=== PATIENT | male | born 1970 | race Caucasian/White ===

== ENCOUNTER 2017-02-13 11:05 | Inpatient (IN) | payer MEDICAID, OTHER ==
[~2017-02-13] VITALS: Ht 172.7 cm; Wt 81.8 kg
[2017-02-13 11:12] VITALS: BP 149/105; PULSE 88; RESP 18; O2SAT 97
--- NOTE | 2017-02-13 11:25 | ED.REPORT ---
HPI-Psychiatric Illness Date of Service February 13, 2017 ED Provider: Tarik Smith MD Patient is a 46 year old male with a history of bipolar disorder and schizophrenia who presents to the ED due to homicidal ideations for the past few years. The patient reports that he does not feel safe and has been questioning his ability to restrain himself if he became "threatened" and might hurt someone but has no plan. He states that he has been analyzing what people say to him and would like to figure out a way to deal with this without hurting anyone. Associated symptoms include anxiety and stress. He denies suicidal ideations at this time but reports he has had suicidal thoughts in the past. The patient states that he is not currently taking any medications and has not spoke with a psychiatrist before. Nursing Notes Stated Complaint: MENTAL HEALTH Chief Complaint: Psychiatric Complaint Nursing Notes Reviewed: Yes Allergies: Coded Allergies: No Known Allergies (Unverified , 02/13/17) General Time Seen by MD: 11:19 Chief Complaint Homicidal ideation Hx Obtained From: Patient Arrived By: Walk-in Onset Occurred: More than a week ago... (>6 months) Associated with: Reports: Anxiety Similar Sx Previous: Yes Risk-Psychiatric Illness Suicide Risk Stratification RF Statements: Risk factors reviewed Past Medical History Past Medical History bipolar disorder schizophrenia Smoking History Unknown if Ever Smoker Social History Alcohol Use: "Social" Drug Use: Denies drug use Other Social History: Good social support Ambulatory Status Independent Review of Systems Respiratory: Denies: Non-productive cough, Shortness of breath Psychiatric: Reports: Anxiety, Homicidal ideation, Stress, Denies: Suicidal ideation Complete sys rev & neg: except as marked. Physical Exam Initial Vital Signs Vital Signs (First) Date Time Temp Pulse Resp B/P Pulse Ox O2 Delivery O2 Flow Rate FiO2 02/13/17 11:12 36.8 88 18 149/105 97 Room Air Initial VS: Reviewed General/Constitutional: Awake, Alert Neurologic: Oriented X3, Speech NL, No motor deficits, No sensory deficits Abnormal Mood/Affect: Positive: Anxious Abnormal Thinking / Perception: Positive: Homicidal, no plan, Suicidal, no plan Head / Eyes: Atraumatic, Normocephalic, PERRL, EOMI Respiratory / Chest: Atraumatic, No respiratory distress Skin: Atraumatic, Color NL, No rash, Warm, Dry Interpretation & Diagnostics Lab Results Interpretation Result Diagram: 02/13/17 1620 02/13/17 1620 Test 02/13/17 11:23 02/13/17 16:20 Hold Urine Received (Received) White Blood Count 7.5th/mm3 (3.8-10.1) Red Blood Count 4.20mil/mm3 (4.40-5.80) Hemoglobin 13.8g/dL (13.8-17.2) Hematocrit 40.7% (41.0-50.0) Mean Corpuscular Volume 96.9fL (81-100) Mean Corpuscular Hemoglobin 32.9pg (27.0-35.0) Mean Corpuscular Hemoglobin Concent 33.9% (32.0-37.0) Red Cell Distribution Width 13.8% (12.3-15.4) Platelet Count 227bil/L (150-400) Neutrophils (%) (Auto) 63.3% (40-74) Lymphocytes (%) (Auto) 22.7% (14-46) Monocytes (%) (Auto) 11.9% (4-12) Eosinophils (%) (Auto) 1.3% (0-5) Basophils (%) (Auto) 0.5% (0-3) Sodium Level 137mEq/L (134-144) Potassium Level 4.1mEq/L (3.5-5.2) Chloride Level 97mEq/L (97-108) Carbon Dioxide Level 23mmol/L (18-29) Blood Urea Nitrogen 19mg/dL (6-24) Creatinine 0.82mg/dL (0.76-1.27) Estimat Glomerular Filtration Rate 108mL/min (>59) Glucose Level 150mg/dL (60-99) Calcium Level 9.4mg/dL (8.5-10.1) Total Bilirubin 0.5mg/dL (0.0-1.2) Aspartate Amino Transf (AST/SGOT) 216U/L (0-50) Alanine Aminotransferase (ALT/SGPT) 63U/L (0-44) Alkaline Phosphatase 69U/L (25-150) Total Protein 7.0g/dL (6.4-8.4) Albumin 3.9g/dL (3.4-5.0) Thyroid Stimulating Hormone (TSH) 2.130uIU/mL (0.450-4.500) Hold Scales Top Tube Received (Received) Re-Eval/Medical Decision Med Decision/Clinical Course 46-year-old male history of schizophrenia, bipolar presenting with thoughts of hurting others. He is worried that he will hurt others. He is not on any medications and Xanax. He reports medications do not work for him. Denies SI. anode worker consulted and recommended admission. Patient admitted to hospital psychiatry araujo. Re-Evaluation/Progress : Time of Eval: 15:35 Re-Evaluation/Progress Note: Discussed patient's case with social media marketer and plan to get patient admitted. Counseled Regarding: Diagnosis, Lab results, Need for admission Discharge & Departure Impression: Primary Impression: Schizophrenia Schizophrenia type: unspecified Qualified Code: F20.9 - Schizophrenia, unspecified Additional Impression: Acute situational disturbance Disposition: ADMITTED TO HOSPITAL Discharge Condition All VS Reviewed: Yes Condition: Stable Scribe Attestation Portions of this note were transcribed by Angie Blanco. I, Dr. Rosemarie Amezquita personally performed the history, physical exam and medical decision-making; I reviewed and confirmed the accuracy of the information in the transcribed note. Signed by: Kris Warner, 02/13/17 and Tarik Mayorga MD February 13, 2017 11:25 Isa Blanco February 13, 2017 12:13
[2017-02-13] MEDS ORDERED: LORazepam 1 mg Tablet PO ONE (12:20)
[2017-02-13 16:32] LABS: BASOPHILS % (AUTO) 0.5 % (0-3); EOSINOPHILS % (AUTO) 1.3 % (0-5); MONOCYTES % (AUTO) 11.9 % (4-12); Mean Corpuscular Hemoglobin 32.9 pg (27.0-35.0); Mean Corpuscular Volume 96.9 fL (81-100); NEUTROPHILS % (AUTO) 63.3 % (40-74); Platelet Count 227 bil/L (150-400)
[2017-02-13] MEDS ORDERED: Alum-Mag Hydrox-Simeth 30 mL Suspension PO PRN ×2 (18:05→20:30)
[2017-02-13] MEDS ORDERED: Benzocaine-Menthol Lozenge 2/Pkg MT PRN (18:05)
[2017-02-13] MEDS ORDERED: Magnesium Hydroxide 10 mL Oral Concentration PO PRN ×2 (18:05→20:30)
[2017-02-13 19:05] VITALS: BP 141/90; PULSE 74; O2SAT 99
[2017-02-13 19:52] VITALS: BP 141/90; PULSE 74; RESP 18; O2SAT 99
[2017-02-13] MEDS ORDERED: Benzocaine-Menthol Lozenge 2/Pkg PO PRN (20:30)
--- NOTE | 2017-02-13 22:26 | NUR ---
Nursing Admit Pt arrival from our ED at 2049 as a voluntary patient with approval for three days from Alba Karimi at [facility]. Pt arrived via wheelchair with hospital staff and security and ambulated to multi purpose room where is was able to complete all paper work and participate with admission process. Pt rated anxiety 8/10, depression 3/10 and denies A/V hallucinations or homicidal or suicidal ideation. Reports history of mother attempting suicide as teenager, and multiple family members being treated for anxiety and depression. Pt reports change in perception of world around him beginning prior to his first divorce in 2014. Pt reports interactions with people around him feel "threatening and relentless" in my interpretation.
--- NOTE | 2017-02-14 04:28 | NUR ---
nursing, nights, 11-7 s/o- has appeared to sleep after 2214 during q 15 minute assessments. a- no apparent distress. p- monitor behavior/emotional state, quality, times and amount of sleep, use and effect of medication. iris
[2017-02-14 08:45] VITALS: BP 117/73; PULSE 16; RESP 16
[2017-02-14] MEDS: LORazepam 1 mg Tablet PO PRN (12:19)
--- NOTE | 2017-02-14 13:49 | PCM.HPPSYC ---
Mental Health HPI Date of Service February 14, 2017 Admission Date/Time February 13, 2017 at 19:55 Reason for Admission Suicidal ideation, paranoia Admission Status: Voluntary Source of Information: Patient Interview, Chart Review Chief Complaint suicidal ideation with paranoia History of Present Illness Patient is a 46-year-old male living with his mother and aunt at his aunts house in [facility]. He moved back to [place] from [place] about 2 months ago. Patient presents today with suicidal ideation (shooting himself in the head with a gun that he does not currently posess) and psychotic symptoms. He had previously described that he feels on stage at all times and that he has a microphone recording and broadcasting things that he says. These symptoms have been going on for greater than one year and have been worsening over the last 3 months. He was mildly agitated with my questioning stating that I am asking all the same questions that have been previously asked but continues to talk. He was pleasant but irritable. He explained to me that he feels like he is covered with video and audio equipment. He had been for 20 years and . Since that time he had another marriage which was similar to his first. He feels like people around him are digging to find answers they will never find. He uses the analogy related to his recent symptoms that he is driving a car with no breaks. Renaldo cruz feels like others are trying to drive the car as well but there are no breaks and he has no control. I met with the patient for 30 minutes, reviewed course from records kept by [facility] emergency department and mental health examiner, I also discussed the case with staff. The patients main issues are paranoia and psychosis. This condition is chronic and has been developing over the last several years. At present it is of moderate intensity. He is manifesting symptoms of suicidal ideation, decreased sleep, and anxiety. Worsening his situation at the time as his transient living situation, difficulty sleeping, and poor habits including drinking alcohol daily. He presents with labiality and difficulty coping due to a combination of emotional imbalance and acute stress. Presenting Symptoms: Psychosis (Months), Anxiety (Months) Vegetative Functioning: Sleep (Decreased), Appetite (Normal), Energy (Decreased ) Allergies Coded Allergies: No Known Allergies (Unverified , 02/13/17) Psychiatric Treatment History Since teenage years, patient has been hospitalized at [facility] in [place] , and [facility] in [place] previously. Fam Hx Mental Health Disorder: Depression (mom, aunt, brother) Past Suicide Attempts Yes (Xanax overdose, in tree with rope around neck) Relevant History Relevant Details: Age of First Attempt: Number of Attempts: Date of Last Attempt: Hx non-suicidal Self-Injury Relevant History Relevant History Details: Past Medical History Past Medical/Surgical History Current and Past Current/Past: Schizophrenia, Bipolar disorder, ADD Problem with Elimination: No Sexually Active: No Currently ?: No Hx Surgeries: No Hx Anesthesia Reactions: No Past Surgical History: None Family History: Cancer (Mother with skin cancer) Fam Hx Mental Health Disorder: Depression Past Social History Family: Living Arrangement: Other (transient, c) Alcohol: Heavy (about 6 12oz beers every 24 hours, day drinking) Hx Substance Use: Yes Substance Use Type: Alcohol, Marijuana (within the last 6 months), Methamphetamine (within the last 6 months) Frequency of Substance Use: historically tried "everything" He has only used alc in last 2 weeks Smoking Status: Former Smoker Review of Systems Constitutional: No: Chills, Fever, Weakness Eyes: Denies: Eyelid Inflammation, Pain, Redness ENT: Denies: Nasal Congestion, Throat Pain Cardiovascular: Denies: Chest Pain, Palpitations Respiratory: Denies: Cough, Hemoptysis Gastrointestinal: Denies: Change in Appetite, Constipation, Diarrhea, Nausea, Vomiting Genitourinary: Denies: Dysuria Musculoskeletal: Reports: Back Pain, Denies: Limitation of Function, Swelling Skin: Denies: Bruising, Dry or Flakiness, Rash, Ulcers Neurological: Denies: Change in Speech, Dizziness, Weakness Psychologic: Reports: Agitation, Insomnia, Nervousness Mental Status Exam Vital Signs Vital Signs Date Time Temp Pulse Resp B/P Pulse Ox O2 Delivery O2 Flow Rate FiO2 02/14/17 08:45 36.7 16 16 117/73 Appearance: Unkept (hospital clothes) Attitude: Cooperative, Other (irritated) Behavior: Overtly anxious Affect: Restricted Mood: Irritable Thought Process/Associations: Logical/Sequential Speech Production: Normal Speech Rate: Pressured Speech Articulation: Normal Thought Content: Suspicious Danger to Self/Suicidal Ideati: Passive Danger to Others: None Delusions: Thought Broadcasting (Endorses), Paranoid (Endorses) Hallucinations: Auditory (Denies), Visual (Denies) Consciousness: Alert Orientation: Person, Place, Date, Situation Memory: Grossly Intact Estimate Intellectual Function: Average Basis for IQ estimate: Awareness current events, Word use/vocabulary Attention/Concentration & Cogn: Intact Cognitive Testing Method: Abstract Reasoning during interview, Proverb interpretation, Spelling forward & backward Insight: Limited Judgement: Limited Result Diagram: 02/13/17 1620 02/13/17 1620 Mental Health Plan Patient is a 46-year-old male with previous diagnoses of bipolar disorder, schizophrenia, and ADD presents with psychosis and paranoia. He has had previous hospitalizations both at [facility] and [facility] in [place]. He feels observed and that his life is so much out of his control that he had thoughts of wanting to kill himself. He has 2 previous attempts one with taking 19 Xanax, and another involving sitting in a tree with a rope around his neck. Both of these times he felt as if there was a way out of the attempt. He states that if he were to kill himself now he would obtain a gun which would be easy for him to do, and shoot himself in the head. His thought process is coherent, he is preoccupied with being monitored. He has delusions of paranoia. He has normal cognitive function. He has not been taking any antipsychotic medications recently, he has in the past used Zyprexa and Ativan associated with psychiatric hospital stays. He feels that stimulant medications such as Adderall are very helpful to him and that he is able to focus on what is in front of him and not be as bothered by what is going on around him. [place] AXIS I: Bipolar Disorder, Schizophrenia, paranoid AXIS II: Differed AXIS III: Chronic back pain AXIS IV: Transient housing AXIS V: GAF 35 Medications Advil 400mg PO Q6H PRN for pain Treatments Patient is being provided with a high degree of safety through the structure and active adult engagement. We will focus on developing improved coping skills and identifying stressors that may have led to current episode. We will attempt to: Integrate into therapeutic groups, milieu and individual therapy. Maintain in a closely monitored and structured unit Provide low-stimulation environment Obtain collateral data to assist in treatment planning Assess degree of lability of affect and impulse control Complete safety plan Decrease frequency of relapse and need for re-hospitalization Denies thoughts of harm to self and/or others Establish a consistent sleep pattern Medication effective in stabilization of mood and/or thought process Tolerates medication without side effects Patient will be on the following psychiatric medications: Zyprexa 10 mg PO BID Clonazepam 1 mg PO HS Address patient's legal status Patient is here voluntarily. Disposition: Likely family's home, estimated length of stay will be 5-14 days Tsering Padgett DO February 14, 2017 13:49
--- NOTE | 2017-02-14 17:11 | NUR ---
DAYS 7-7 S/O-Patient has spent most of shift in room, has been out for group and meals. Patient denies SI and rated depression 3/10. Requesting anxiety medication in afternoon. A- Ativan given with good effect patient resting quietly in room. Denies any needs, made aware of liver labs, AST 216, ALT 63. VSS P- ETOH assessment
--- NOTE | 2017-02-14 22:40 | NUR ---
nursing note evenings S)"The right hand never know what the left hand is doing" O) pt inquiring about his need for ADD medication, "I asked the Dr for Adderall" spent most of evening in dining room with selected peers, cooperative took medication, ate meals A)irritable has abrupt manner, cooperative P) monitor medication effectiveness and encourage participation in treatment
--- NOTE | 2017-02-15 04:23 | NUR ---
nursing, nights, 11-7 s/o- has appeared to sleep after 0 during q 15 minute assessments. a- no apparent distress. p- monitor behavior/emotional state, quality, times and amount of sleep, use and effect of medication. iris
[2017-02-15 10:26] VITALS: BP 118/85; PULSE 107; RESP 16
[2017-02-15] MEDS: LORazepam 1 mg Tablet PO PRN ×2 (11:04→16:25)
--- NOTE | 2017-02-15 11:23 | PCM.PNPSY ---
Subjective Date of Service February 15, 2017 Subjective I spent 30 minutes both reviewing his treatment plan and providing supportive and educational psychotherapy. I spent more than 50% of the time counseling the patient. I reviewed the treatment plan with the patient and discussed options available including the potential risks, benefits and side effects. Singh reports a decrease in intensity of his symptoms. He feels that the medications and sleep helped him significantly. The Staff reports that he has been active and is participating well in one-to-one unit and group activities. He slept 6 hours. He denies medication side effects. Patient was able to identify his medications and what they were used to treat. He appeared to understand the need for medications by the questions he asked during our discussion. Current Medications Current Medications Clonazepam 1 mg HS PO Last administered on 02/14/17 20:13; Admin Dose 1 MG; Start 02/13/17 at 21:00 Ibuprofen 400 mg Q6H PRN PO Last administered on 02/15/17 11:04; Admin Dose 400 MG; Start 02/14/17 at 14:25 Lorazepam 1 mg ONCE ONCE PO Last administered on 02/13/17 12:55; Admin Dose 1 MG; Start 02/13/17 at 12:20; Stop 02/13/17 at 12:21; Status DC Lorazepam 1 mg Q4H PRN PO Last administered on 02/15/17 11:04; Admin Dose 1 MG ; Start 02/13/17 at 20:30 Olanzapine 10 mg BID PO Last administered on 02/15/17 08:22; Admin Dose 10 MG; Start 02/14/17 at 20:30 Olanzapine 10 mg HS PO Last administered on 02/13/17 21:41; Admin Dose 10 MG; Start 02/13/17 at 21:00; Stop 02/14/17 at 16:49; Status DC Trazodone HCl 50 mg HS PRN PO Last administered on 02/13/17 21:41; Admin Dose 50 MG; Start 02/13/17 at 18:05 Mental Status Exam Vital Signs Vital Signs Date Time Temp Pulse Resp B/P Pulse Ox O2 Delivery O2 Flow Rate FiO2 02/15/17 10:26 36.3 107 16 118/85 Appearance: Unkept (hospital clothes) Attitude: Cooperative, Other (irritated) Behavior: Overtly anxious Affect: Restricted Mood: Irritable Thought Process/Associations: Logical/Sequential Speech Production: Normal Speech Rate: Pressured Speech Articulation: Normal Thought Content: Suspicious Danger to Self/Suicidal Ideati: Passive Danger to Others: None Delusions: Thought Broadcasting (Endorses), Paranoid (Endorses) Consciousness: Alert Orientation: Person, Place, Date, Situation Memory: Grossly Intact Estimate Intellectual Function: Average Basis for IQ estimate: Awareness current events, Word use/vocabulary Attention/Concentration & Cogn: Intact Cognitive Testing Method: Abstract Reasoning during interview, Proverb interpretation, Spelling forward & backward Insight: Limited Judgement: Limited Result Diagram: 02/13/17 1620 02/13/17 1620 Mental Health Plan Patient is a 46-year-old male with previous diagnoses of bipolar disorder, schizophrenia, and ADD presents with psychosis and paranoia. He has had previous hospitalizations both at [facility] and [facility] in [place]. He feels observed and that his life is so much out of his control that he had thoughts of wanting to kill himself. He has 2 previous attempts one with taking 19 Xanax, and another involving sitting in a tree with a rope around his neck. Both of these times he felt as if there was a way out of the attempt. He states that if he were to kill himself now he would obtain a gun which would be easy for him to do, and shoot himself in the head. His thought process is coherent, he is preoccupied with being monitored. He has delusions of paranoia. He has normal cognitive function. He has not been taking any antipsychotic medications recently, he has in the past used Zyprexa and Ativan associated with psychiatric hospital stays. He feels that stimulant medications such as Adderall are very helpful to him and that he is able to focus on what is in front of him and not be as bothered by what is going on around him. I believe the addition of Adderall would not be therapeutic. Today after medications are denied asleep he Reports in a near complete remission of psychotic symptoms. [place] AXIS I: Bipolar Disorder, Schizophrenia, paranoid AXIS II: Differed AXIS III: Chronic back pain AXIS IV: Transient housing AXIS V: GAF 35 Medications Treatments Patient is being provided with a high degree of safety through the structure and active adult engagement. We will focus on developing improved coping skills and identifying stressors that may have led to current episode. We will attempt to: Integrate into therapeutic groups, milieu and individual therapy. Maintain in a closely monitored and structured unit Provide low-stimulation environment Obtain collateral data to assist in treatment planning Assess degree of lability of affect and impulse control Complete safety plan Decrease frequency of relapse and need for re-hospitalization Denies thoughts of harm to self and/or others Establish a consistent sleep pattern Medication effective in stabilization of mood and/or thought process Tolerates medication without side effects Patient will be on the following psychiatric medications: Zyprexa 10 mg PO BID Clonazepam 1 mg PO HS Address patient's legal status Patient is here voluntarily. Disposition: Likely family's home, estimated length of stay will be 5-14 days Anthony Mitchell MD February 15, 2017 11:23
--- NOTE | 2017-02-15 14:07 | NUR ---
DAYS 7-7 S/O-Patient has been up for meals, group, but for most part in room during shift. Mood and affect calm. Patient has good appetite Patient denies SI and interacting with staff and other patient appropriate. A- 400mg Motrin given for generalized pain and 1mg Ativan given for anxiety. P-Continue to monitor and keep patient safe.
--- NOTE | 2017-02-15 16:35 | NUR ---
Observations 0700 - 1900 Pt was bright when engaged, friendly, isolative and social with peers when out of his room. Pt speech and eye contact was good. Pt is pleasant and friendly upon approach. Pt is polite and cooperative. Pt maintained behavior control throughout the shift. Pt attended community meeting and set a daily goal. Pt rated her mood 8/10, with 10 being the best. Pt declined to attend group. Pt did go out on patio to get some fresh air with staff and peers. Pt attended meals in D.R. and ate 100% of meals. Pt ate snack. Pt took a shower, washed a load of clothes and attended to ADL's. Pt is well groomed and appropriate on the unit. Pt was observed every 15 minutes throughout the shift as ordered.
--- NOTE | 2017-02-15 19:07 | NUR ---
healthcare economics manager/Counselor: S/O: Patient slept 7 hours last night per staff. Patient denies S/I and H/I. He also denies auditory and visual hallucinations. Depression and anxiety was not rated. A: Patient is cooperative, unkept, anxious, restricted affect, irritable, suspicious, passive, delusional, paranoid, limited insight, limited judgment. P: Follow care plan, coordinate with out-patient providers.
--- NOTE | 2017-02-16 05:56 | NUR ---
Nursing note: night supervisor/sleep Patient appears to be sleeping on safety checks during the night. No complaints voiced.
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
[2017-02-16] MEDS: LORazepam 1 mg Tablet PO PRN (10:01)
--- NOTE | 2017-02-16 12:58 | PCM.DIMED ---
Discharge Instructions Date of Service February 16, 2017 Dates of Hospitalization February 13, 2017 at 19:55 Discharge Diagnosis Discharge Diagnosis AXIS I: Psychotic disorder, unspecified vs. Schizoaffective disorder, Bipolar type by history. AXIS II: Deferred AXIS III: Chronic back pain AXIS IV: Unemployed, homeless living with aunt, worsening mental illness AXIS V: GAF 35 Test Results Test Results CBC Test 02/13/17 16:20 White Blood Count 7.5th/mm3 (3.8-10.1) Red Blood Count 4.20mil/mm3 (4.40-5.80) Hemoglobin 13.8g/dL (13.8-17.2) Hematocrit 40.7% (41.0-50.0) Mean Corpuscular Volume 96.9fL (81-100) Mean Corpuscular Hemoglobin 32.9pg (27.0-35.0) Mean Corpuscular Hemoglobin Concent 33.9% (32.0-37.0) Red Cell Distribution Width 13.8% (12.3-15.4) Platelet Count 227bil/L (150-400) Neutrophils (%) (Auto) 63.3% (40-74) Lymphocytes (%) (Auto) 22.7% (14-46) Monocytes (%) (Auto) 11.9% (4-12) Eosinophils (%) (Auto) 1.3% (0-5) Basophils (%) (Auto) 0.5% (0-3) CMP Test 02/13/17 16:20 Sodium Level 137mEq/L Potassium Level 4.1mEq/L Chloride Level 97mEq/L Carbon Dioxide Level 23mmol/L Blood Urea Nitrogen 19mg/dL Creatinine 0.82mg/dL Estimat Glomerular Filtration Rate 108mL/min Glucose Level 150mg/dL Calcium Level 9.4mg/dL Total Bilirubin 0.5mg/dL Aspartate Amino Transf (AST/SGOT) 216U/L Alanine Aminotransferase (ALT/SGPT) 63U/L Alkaline Phosphatase 69U/L Total Protein 7.0g/dL Albumin 3.9g/dL Thyroid Stimulating Hormone (TSH) 2.130uIU/mL Hold Scales Top Tube Received Diet Discharge Diet: No restrictions Activity Discharge Activity: No restrictions Patient Instructions Patient Instructions You are being discharged AMA. Should you have any thoughts of harming yourself or others, please call the crisis line, your provider, 911, or go to the nearest Emergency Department. Follow-up plan Per Richie with Crisis Line, they will follow-up with you daily and will set up a next day appointment as soon as possible. Follow-up with PCP in: 1 week Camacho Patterson MD February 16, 2017 12:58
--- NOTE | 2017-02-16 13:50 | NUR ---
Nursing Discharge Note: Patient discharged AMA. Encouraged patient to stay with patient declining. Did agree to allow [facility] to call him at his aunt's house ([address]) in [place] where he will be staying. [facility] to arrange next day appointment for patient on Saturday. Acknowledges understanding of d/c instructions and has a copy with them upon leaving unit at 1350. Belongings accounted for and with patient. No prescriptions given. Patient denies harmful thoughts and hallucinations at this time. Aunt to provide ride to [place].
--- NOTE | 2017-02-16 23:57 | PCM.DC.MED ---
Discharge Summary Date of Service February 16, 2017 Dates of Hospitalization Date of Hospital Admission February 13, 2017 at 19:55 Date of Discharge: February 16, 2017 Providers: Admitting Physician: Anthony Mitchell MD Primary Care Physician: Charisse Attending Physician: Anthony Mitchell MD Diagnosis at Time of Discharge Diagnosis at Time of Discharge AXIS I: Psychotic disorder, unspecified vs. Schizoaffective disorder, Bipolar type by history. AXIS II: Deferred AXIS III: Chronic back pain AXIS IV: Unemployed, homeless living with aunt, worsening mental illness AXIS V: GAF [address] Tsering Padgett H&P of 02/14/17: Chief Complaint suicidal ideation with paranoia History of Present Illness Patient is a 46-year-old male living with his mother and aunt at his aunts house in [facility]. He moved back to [place] from [place] about 2 months ago. Patient presents today with suicidal ideation (shooting himself in the head with a gun that he does not currently posess) and psychotic symptoms. He had previously described that he feels on stage at all times and that he has a microphone recording and broadcasting things that he says. These symptoms have been going on for greater than one year and have been worsening over the last 3 months. He was mildly agitated with my questioning stating that I am asking all the same questions that have been previously asked but continues to talk. He was pleasant but irritable. He explained to me that he feels like he is covered with video and audio equipment. He had been for 20 years and . Since that time he had another marriage which was similar to his first. He feels like people around him are digging to find answers they will never find. He uses the analogy related to his recent symptoms that he is driving a car with no breaks. Renaldo cruz feels like others are trying to drive the car as well but there are no breaks and he has no control. I met with the patient for 30 minutes, reviewed course from records kept by [facility] emergency department and mental health examiner, I also discussed the case with staff. The patients main issues are paranoia and psychosis. This condition is chronic and has been developing over the last several years. At present it is of moderate intensity. He is manifesting symptoms of suicidal ideation, decreased sleep, and anxiety. Worsening his situation at the time as his transient living situation, difficulty sleeping, and poor habits including drinking alcohol daily. He presents with labiality and difficulty coping due to a combination of emotional imbalance and acute stress. Presenting Symptoms: Psychosis (Months), Anxiety (Months) Vegetative Functioning: Sleep (Decreased), Appetite (Normal), Energy (Decreased ) Hospital Course The patient was admitted and started on olanzapine 10mg twice daily and clonazepam 1mg at bedtime. The patient had requested start of amphetamine for ADHD, but given his paranoia and delusions, this was contraindicated. The day following admission the patient reported his symptoms markedly improved, but appeared to still have limited insight. On the day of discharge, he reported that he needed to leave as he had multiple jobs waiting for him in direct contrast to his history of being unemployed for some time. He was reporting that others in [place] "were still in on it" and he would nathaniel the hospital if we were disclosing his information. He indicated that they were still taping him in the community. The patient's aunt, with whom he would be living, did not want the patient returning there in his current condition. As these symptoms were considered essentially the same as on admission, but minimally attenuated, [facility] was called to have the patient assessed for prison. [facility] declined to send a DMHP as they did not feel it met criteria as there was no gun available per the patient's aunt. The patient was discharged AMA. The crisis line reported that they would follow-up with the patient by phone daily and arrange an appointment as early as possible next week. At the time of discharge, the patient was reporting his mood was stable. Sleep was reported as 8+ hours per staff. And appetite was reported as fine. His anxiety was reported as 0/10 and depression as 0/10. He denied auditory or visual hallucinations, but continued to report paranoia and conspiracies with little insight. He denied medication side effects. Exam Vital Signs (Last) Date Time Temp Pulse Resp B/P Pulse Ox O2 Delivery O2 Flow Rate FiO2 02/15/17 10:26 36.3 107 16 118/85 02/13/17 19:52 99 Room Air Exam Discharge Mental Status Exam Appearance: Unkept (hospital clothes) Attitude: Cooperative, Other (irritable) Behavior: Some psychomotor activation, appears anxious Affect: Restricted Mood: Irritable Thought Process/Associations: Circumstantial Speech Production: Normal Speech Rate: Pressured, mild Speech Articulation: Normal Thought Content: Suspicious Danger to Self/Suicidal Ideation: denies Danger to Others: None Delusions: Paranoid (Endorses) Consciousness: Alert Orientation: Person, Place, Date, Situation Memory: Grossly Intact Estimate Intellectual Function: Average Basis for IQ estimate: Awareness current events, Word use/vocabulary Attention/Concentration & Cognition: Grossly Intact Insight: Limited Judgement: Limited Test 02/13/17 11:23 02/13/17 16:20 Hold Urine Received (Received) White Blood Count 7.5th/mm3 (3.8-10.1) Red Blood Count 4.20mil/mm3 (4.40-5.80) Hemoglobin 13.8g/dL (13.8-17.2) Hematocrit 40.7% (41.0-50.0) Mean Corpuscular Volume 96.9fL (81-100) Mean Corpuscular Hemoglobin 32.9pg (27.0-35.0) Mean Corpuscular Hemoglobin Concent 33.9% (32.0-37.0) Red Cell Distribution Width 13.8% (12.3-15.4) Platelet Count 227bil/L (150-400) Neutrophils (%) (Auto) 63.3% (40-74) Lymphocytes (%) (Auto) 22.7% (14-46) Monocytes (%) (Auto) 11.9% (4-12) Eosinophils (%) (Auto) 1.3% (0-5) Basophils (%) (Auto) 0.5% (0-3) Sodium Level 137mEq/L (134-144) Potassium Level 4.1mEq/L (3.5-5.2) Chloride Level 97mEq/L (97-108) Carbon Dioxide Level 23mmol/L (18-29) Blood Urea Nitrogen 19mg/dL (6-24) Creatinine 0.82mg/dL (0.76-1.27) Estimat Glomerular Filtration Rate 108mL/min (>59) Glucose Level 150mg/dL (60-99) Calcium Level 9.4mg/dL (8.5-10.1) Total Bilirubin 0.5mg/dL (0.0-1.2) Aspartate Amino Transf (AST/SGOT) 216U/L (0-50) Alanine Aminotransferase (ALT/SGPT) 63U/L (0-44) Alkaline Phosphatase 69U/L (25-150) Total Protein 7.0g/dL (6.4-8.4) Albumin 3.9g/dL (3.4-5.0) Thyroid Stimulating Hormone (TSH) 2.130uIU/mL (0.450-4.500) Hold Scales Top Tube Received (Received) Discharge Medications No Active Prescriptions or Reported Meds Followup Plan Disposition: AMA discharge. Follow-up plan Per Richie with Crisis Line, they will follow-up with you daily and will set up a next day appointment as soon as possible. Discharge Diet: No restrictions Discharge Activity: No restrictions Patient Instructions Should you have any thoughts of harming yourself or others, please call the crisis line, your provider, 911, or go to the nearest Emergency Department. Follow-up with PCP in: 1 week Camacho Patterson MD February 16, 2017 23:42
== END 2017-02-16 13:50 | disposition left against medical advice (07) | DRG 885 ==
LOC: SED 11:05 → MHC 19:55
PROVIDERS: ADMIT Psychiatry & Neurology Psychiatry; ATTEND Psychiatry & Neurology Psychiatry
DX: F25.0 Schizoaffective disorder, bipolar type (principal); R45.850 Homicidal ideations; R45.851 Suicidal ideations; Z87.891 Personal history of nicotine dependence; Z91.5 Personal history of self-harm; Z59.0 Homelessness; Z56.0 Unemployment, unspecified

== ENCOUNTER 2017-05-21 11:55 | Emergency (ER) | payer MEDICAID, OTHER ==
[~2017-05-21] VITALS: Ht 172.7 cm; Wt 81.8 kg
[2017-05-21 12:05] VITALS: BP 136/93; PULSE 80; RESP 16; O2SAT 98
[2017-05-21] MEDS ORDERED: OLANZapine Zydis ODT 5 mg Tablet PO ONE (12:45)
--- NOTE | 2017-05-21 12:47 | ED.REPORT ---
HPI-Psychiatric Illness Date of Service May 21, 2017 ED Provider: Virgilio Ramos DO Pt is a 46 y/o male w/ a hx of paranoid schizophrenia, bipolar, depression, anxiety, presenting to the ED with primary concern for being placed on psychiatric medications. The patient was checking in at a Crisis center and was told to see his primary care doctor in [facility]. He says that he has been feeling unstable recently because he has no psychiatric medications that are prescribed to him. In the past he has taken Zyprexa, Xanax, and anti depressants. He states he is suicidal with plan to "efficiently" commit suicide by means of overdose. He says that he is feeling unstable and that if someone were to provide him he may hurt that person. Pt denies any recent alcohol/drug use. There are no physical concerns. Nursing Notes Stated Complaint: MENTAL HEALTH Chief Complaint: Psychiatric Complaint Nursing Notes Reviewed: Yes Allergies: Coded Allergies: No Known Allergies (Unverified , 05/21/17) No Active Prescriptions or Reported Meds General Time Seen by MD: 12:35 Chief Complaint Other (multi psych) Hx Obtained From: Patient Arrived By: Walk-in Onset Occurred: Onset unknown Symptom Duration: Since onset Progression Since Onset: Constant Severity: Current: No pain currently Severity: Maximum: No pain Recent Healthcare: Previous diagnosis Similar Sx Previous: Yes Risk-Psychiatric Illness Suicide Risk Stratification RF Statements: Risk factors reviewed Past Medical History Past Medical History Bipolar disorder Paranoid schizophrenia Depression Anxiety Past Surgical History None reported Smoking History Former Smoker Social History Alcohol Use: "Social" Drug Use: Denies drug use Other Social History: Good social support Ambulatory Status Independent Review of Systems Constitutional: Denies: Fever Respiratory: Denies: Shortness of breath Cardiovascular: Denies: Chest pain GI: Denies: Abdominal pain Psychiatric: Reports: Delusional Complete sys rev & neg: except as marked. Physical Exam Initial Vital Signs Vital Signs (First) Date Time Temp Pulse Resp B/P Pulse Ox O2 Delivery O2 Flow Rate FiO2 05/21/17 12:05 37.0 80 16 136/93 98 Room Air Initial VS: Reviewed, Vital signs normal Head / Eyes: Atraumatic, Normocephalic ENT: Mucous membranes moist, Conjunctiva normal Neck: Supple, Full range of motion Respiratory: Breath sounds normal, Clear to auscultation, No respiratory distress Cardiovascular: Regular rate & rhythm, Heart sounds normal, Intact distal pulses Abdomen / GI: Soft, Non-tender Extremities: Vascular intact, Neuro intact Skin: Warm, Dry, No cyanosis General/Constitutional: Awake, Alert, No acute distress, Cooperative, Not toxic appearing Neurologic: Oriented X3, Speech NL, No motor deficits Psychiatric: Affect NL, Mood NL Suicidal with plan Mild pressured speech Interpretation & Diagnostics Lab Results Interpretation Result Diagram: 05/21/17 1255 05/21/17 1255 Test 05/21/17 12:25 05/21/17 12:55 Hold Urine Received (Received) White Blood Count 5.4th/mm3 (3.8-10.1) Red Blood Count 3.91mil/mm3 (4.40-5.80) Hemoglobin 12.7g/dL (13.8-17.2) Hematocrit 38.3% (41.0-50.0) Mean Corpuscular Volume 98.0fL (81-100) Mean Corpuscular Hemoglobin 32.5pg (27.0-35.0) Mean Corpuscular Hemoglobin Concent 33.2% (32.0-37.0) Red Cell Distribution Width 12.9% (12.3-15.4) Platelet Count 230bil/L (150-400) Neutrophils (%) (Auto) 57.6% (40-74) Lymphocytes (%) (Auto) 29.0% (14-46) Monocytes (%) (Auto) 11.0% (4-12) Eosinophils (%) (Auto) 2.0% (0-5) Basophils (%) (Auto) 0.2% (0-3) Sodium Level 143mEq/L (134-144) Potassium Level 4.7mEq/L (3.5-5.2) Chloride Level 105mEq/L (97-108) Carbon Dioxide Level 28mmol/L (18-29) Blood Urea Nitrogen 11mg/dL (6-24) Creatinine 0.89mg/dL (0.76-1.27) Estimat Glomerular Filtration Rate 99mL/min (>59) Glucose Level 97mg/dL (60-99) Calcium Level 9.3mg/dL (8.5-10.1) Total Bilirubin 0.2mg/dL (0.0-1.2) Aspartate Amino Transf (AST/SGOT) 12U/L (0-50) Alanine Aminotransferase (ALT/SGPT) 14U/L (0-44) Alkaline Phosphatase 61U/L (25-150) Total Protein 6.2g/dL (6.4-8.4) Albumin 4.1g/dL (3.4-5.0) Thyroid Stimulating Hormone (TSH) 1.780uIU/mL (0.450-4.500) Re-Eval/Medical Decision Med Decision/Clinical Course Given the patient's acuity, I feel this patient should be admitted to inpatient psychiatry. Zyprexa given. Consultation : Consulted With: laceworker Call Returned at: 13:40 Data Compiler: Agrees with eval, Agrees with plan Counseled Regarding: Diagnosis, Lab results Discharge & Departure Impression: Primary Impression: Suicidal ideations Discharge Condition All VS Reviewed: Yes Condition: Stable Referrals: NOPCP (PCP) Care Transferred to: Dr. Nick Desouza Care Transferred at: 18:00 Scribe Attestation Portions of this note were transcribed by James Haas. I, Dr. Ramos personally performed the history, physical exam and medical decision-making; I reviewed and confirmed the accuracy of the information in the transcribed note. Virgilio Ramos DO May 21, 2017 12:47 JAMES HAAS May 21, 2017 12:50
[2017-05-21 13:09] LABS: BASOPHILS % (AUTO) 0.2 % (0-3); Mean Corpuscular Hemoglobin 32.5 pg (27.0-35.0); NEUTROPHILS % (AUTO) 57.6 % (40-74); Platelet Count 230 bil/L (150-400)
[2017-05-21 14:56] VITALS: BP 137/97; PULSE 61; RESP 16; O2SAT 97
[2017-05-21 17:08] VITALS: BP 135/92; PULSE 64; O2SAT 97
[2017-05-21 22:40] VITALS: BP 118/72; PULSE 67; RESP 16; O2SAT 98
[2017-05-21 23:05] VITALS: BP 118/72; PULSE 67; RESP 16; O2SAT 98
== END 2017-05-21 23:07 | disposition other institution (70) ==
LOC: SED 11:55
DX: R45.851 Suicidal ideations (principal); F32.9 Major depressive disorder, single episode, unspecified; F41.9 Anxiety disorder, unspecified; F20.0 Paranoid schizophrenia; Z87.891 Personal history of nicotine dependence